=== PATIENT | female | born 1990 | race Caucasian/White ===

== ENCOUNTER 2016-11-21 17:12 | Emergency (ER) | payer OTHER ==
[~2016-11-21] VITALS: Ht 177.8 cm; Wt 167.8 kg
[~2016-11-21 17:12] MED LIST: ALBUTEROL SULF8.5 GM INH; BACTRIM DS TAB1 EACH PO; CEPHALEXIN500 MG PO; DOXYCYCLINE HY100 MG PO; LISINOPRIL5 MG PO; METFORMIN HCL500 MG PO; MULTIVITAMINS1 EAC7; NORCO 5-325 TA1 EACH PO; PERCOCET 5-3251 EACH PO; PRILOSEC20 MG PO; PROMETHAZINE HC25 M1 PO; VITAMIN D5000 UNIT
[2016-11-21] MEDS ORDERED: LATUDA20 MG PO (17:24)
== END 2016-11-21 17:30 | disposition home or self-care (01) ==
LOC: ED 17:12
DX: Z00.8 Encounter for other general examination (principal)

== ENCOUNTER 2017-11-01 08:27 | Emergency (ER) | payer OTHER ==
[~2017-11-01] VITALS: Ht 177.8 cm; Wt 159.7 kg
[~2017-11-01 08:27] MED LIST changes: +LATUDA20 MG PO
[2017-11-01] MEDS ORDERED: NORCO 7.5-3251 EACH PO (12:58)
== END 2017-11-01 13:17 | disposition home or self-care (01) ==
LOC: ED 08:27
DX: N83.201 Unspecified ovarian cyst, right side (principal); E11.9 Type 2 diabetes mellitus without complications; I10 Essential (primary) hypertension; F17.200 Nicotine dependence, unspecified, uncomplicated; Z88.6 Allergy status to analgesic agent; Z88.0 Allergy status to penicillin
CPT/HCPCS: 74177; 76830; 76856; 81001; 84703; 85025; 96361; 96374; 99284; J1885; J7030; Q9967

== ENCOUNTER 2018-08-26 23:57 | Emergency (ER) | payer OTHER ==
[~2018-08-26] VITALS: Ht 177.8 cm; Wt 155.1 kg
[~2018-08-26 23:57] MED LIST changes: +CLONIDINE HCL0.1 MG PO; +CYCLOBENZAPRINE10 MG PO; +DICLOFENAC SODI75 MG PO; +FORTAMET500 MG PO; +LEXAPRO10 MG PO; +NORCO 7.5-3251 EACH PO
== END 2018-08-27 01:01 | disposition home or self-care (01) ==
LOC: ED 23:57
DX: S80.11XA Contusion of right lower leg, initial encounter (principal); W01.198A Fall on same level from slipping, tripping and stumbling with subsequent striking against other object, initial encounter; J45.909 Unspecified asthma, uncomplicated; E11.9 Type 2 diabetes mellitus without complications; G43.909 Migraine, unspecified, not intractable, without status migrainosus; I10 Essential (primary) hypertension; F17.200 Nicotine dependence, unspecified, uncomplicated; Z88.6 Allergy status to analgesic agent; Z88.0 Allergy status to penicillin; Z79.899 Other long term (current) drug therapy; Z79.84 Long term (current) use of oral hypoglycemic drugs
CPT/HCPCS: 73590; 73610; 99283-25

== ENCOUNTER 2019-02-09 21:58 | Emergency (ER) | payer OTHER ==
[~2019-02-09] VITALS: Ht 177.8 cm; Wt 155.1 kg
--- OUTSIDE RECORDS SUMMARY | 2019-02-09 22:00 | XMS ---
PreManage Notification: LINA LI Security Repossessor Events No recent Security Events currently on file CRITERIA MET - [facility] Care Guidelines - [facility] There are no care providers on record at this time. Guidelines Source: [employer] [facility] [place] Guidelines Date: 08/28/2018 Care Coordination: Mental health services are being provided by [employer].\T\nbsp; Please contact [employer] with mental health concerns.\T\nbsp; [facility]:\T\nbsp; [phone]\T\nbsp; Vinny: [phone]. E.D. VISIT COUNT (12 MO.) 3 [facility] TOTAL 3 NOTE: Visits indicate total known visits. ED/UCC VISIT TRACKING (12 MO.) 02/09/2019 21:59 [facility] [place] TYPE: Emergency COMPLAINT: - FLANK PAIN, VOMITING, SOB 08/26/2018 23:58 [facility] [place] TYPE: Emergency COMPLAINT: - R ANKLE INJURY DIAGNOSES: - 1 Type 2 diabetes mellitus without complications - Fall same lev from slip/trip w strike agnst oth object, init - Unspecified asthma, uncomplicated - Migraine, unsp, not intractable, without status migrainosus - Other senior care (current) drug therapy - Contusion of right lower leg, initial encounter - Nicotine dependence, unspecified, uncomplicated - Essential (primary) hypertension - custodial (current) use of oral hypoglycemic drugs - Allergy status to analgesic agent status - Allergy status to penicillin - Pain in right ankle and joints of right foot 02/14/2018 18:09 [facility] [place] TYPE: Emergency COMPLAINT: - BACK PAIN DIAGNOSES: - Strain of muscle, fascia and tendon of lower back, init - Other superintendent marine oil terminal (current) drug therapy - 1 Type 2 diabetes mellitus without complications - custodial (current) use of oral hypoglycemic drugs - Other and unspecified ovrexrtn or strnous move/pstr, init - Allergy status to analgesic agent status - Essential (primary) hypertension - Dorsalgia, unspecified - Low back pain - Allergy status to penicillin - Nicotine dependence, unspecified, uncomplicated INPATIENT VISIT TRACKING (12 MO.) No inpatient visits to display in this time frame [id number]
[2019-02-09] MEDS ORDERED: CLEOCIN HCL300 MG PO (22:18)
[2019-02-09] MEDS ORDERED: NORCO 7.5-3251 EACH PO (22:18)
[2019-02-10] MEDS ORDERED: NORCO 5-325 TA1 EACH PO (00:27)
[2019-02-10] MEDS ORDERED: ZOFRAN4 MG PO (00:27)
== END 2019-02-10 00:41 | disposition home or self-care (01) ==
LOC: ED 21:58
DX: R10.9 Unspecified abdominal pain (principal); I10 Essential (primary) hypertension; E11.9 Type 2 diabetes mellitus without complications; F17.200 Nicotine dependence, unspecified, uncomplicated; Z88.6 Allergy status to analgesic agent; Z88.0 Allergy status to penicillin
CPT/HCPCS: 74177; 80053; 81001; 83690; 84703; 85025; 96361; 96374; 96375; 96376; 99284-25; J1170; J2405; J7030

== ENCOUNTER 2020-01-27 12:40 | Emergency (ER) | payer OTHER ==
[~2020-01-27] VITALS: Ht 177.8 cm; Wt 155.1 kg
[~2020-01-27 12:40] MED LIST changes: +CLEOCIN HCL300 MG PO; +ZOFRAN4 MG PO
--- OUTSIDE RECORDS SUMMARY | 2020-01-27 12:44 | XMS ---
PreManage Notification: LINA LI Security Adobe Developer Events No recent Security Events currently on file CRITERIA MET - [facility] - Has Care Guidelines - PDMP CARE PROVIDERS ARIANNE HAMMONDS Nurse Practitioner: Women's Health 02/10/2019-Current PHONE: [phone] Guidelines Source: [employer] [facility] Guidelines Date: 08/28/2018 Care Coordination: Mental health services are being provided by [employer].\T\nbsp; Please contact [employer] with mental health concerns.\T\nbsp; Adilia/Keanu l[place]:\T\nbsp; [phone]\T\nbsp; [place]: [phone]. Care History Medical/Surgical 02/10/2019 [facility] - Patient is currently established with [facility]. If patient is seen in the ED during business hours. Please contact [facility] at [facility]. Care Recommendation: This patient has had 5 or more Emergency Department visits in the last 12 months.\T\nbsp; Patient requires education on the scope and purpose of the ED as an acute care provider not a Primary Care Provider and should not be utilized for chronic conditions.\T\nbsp; These are guidelines and the provider should exercise clinical judgment when providing care. E.D. VISIT COUNT (12 MO.) 2 [facility] TOTAL 2 NOTE: Visits indicate total known visits. ED/UCC VISIT TRACKING (12 MO.) 01/27/2020 12:41 [facility] [place] TYPE: Emergency COMPLAINT: - INSECT BITE 02/09/2019 21:59 [facility] [place] TYPE: Emergency COMPLAINT: - FLANK PAIN, VOMITING, SOB DIAGNOSES: - Allergy status to penicillin - Essential (primary) hypertension - Allergy status to analgesic agent status - Unspecified abdominal pain - Type 2 diabetes mellitus without complications - Nicotine dependence, unspecified, uncomplicated INPATIENT VISIT TRACKING (12 MO.) No inpatient visits to display in this time frame [id number]
[2020-01-27] MEDS ORDERED: NORCO 7.5-3251 EACH PO (20:06)
[2020-01-27] MEDS ORDERED: ONDANSETRON ODT8 MG PO (20:06)
[2020-01-27] MEDS ORDERED: GLUCOPHAGE500 MG PO (20:06)
[2020-01-27] MEDS ORDERED: BACTRIM DS TAB1 EACH PO (20:06)
== END 2020-01-27 20:38 | disposition home or self-care (01) ==
LOC: ED 12:40
DX: L03.311 Cellulitis of abdominal wall (principal); B95.62 Methicillin resistant Staphylococcus aureus infection as the cause of diseases classified elsewhere; J45.909 Unspecified asthma, uncomplicated; E11.9 Type 2 diabetes mellitus without complications; G43.909 Migraine, unspecified, not intractable, without status migrainosus; I10 Essential (primary) hypertension; F17.200 Nicotine dependence, unspecified, uncomplicated; Z88.0 Allergy status to penicillin; Z88.8 Allergy status to other drugs, medicaments and biological substances; Z79.899 Other long term (current) drug therapy; Z79.84 Long term (current) use of oral hypoglycemic drugs
CPT/HCPCS: 76705; 80053; 83605; 85025; 99284-25; J1170; J2405; J3370; J7030; J7060

== ENCOUNTER 2020-08-07 17:26 | Emergency (ER) | payer OTHER ==
[~2020-08-07] VITALS: Ht 177.8 cm; Wt 156.2 kg
[~2020-08-07 17:26] MED LIST changes: +GLUCOPHAGE500 MG PO; +ONDANSETRON ODT8 MG PO
[2020-08-07] MEDS ORDERED: CYCLOBENZAPRINE10 MG PO (19:47)
[2020-08-07] MEDS ORDERED: HYDROCODON-ACE1 EA10 PO (19:47)
== END 2020-08-07 20:00 | disposition home or self-care (01) ==
LOC: ED 17:26
DX: S39.012A Strain of muscle, fascia and tendon of lower back, initial encounter (principal); X50.0XXA Overexertion from strenuous movement or load, initial encounter; J45.909 Unspecified asthma, uncomplicated; E11.9 Type 2 diabetes mellitus without complications; G43.909 Migraine, unspecified, not intractable, without status migrainosus; I10 Essential (primary) hypertension; F17.200 Nicotine dependence, unspecified, uncomplicated; Z88.0 Allergy status to penicillin; Z88.6 Allergy status to analgesic agent
CPT/HCPCS: 99283

== ENCOUNTER 2021-09-06 09:54 | Emergency (ER) | payer OTHER ==
[~2021-09-06] VITALS: Ht 177.8 cm; Wt 156.0 kg
[~2021-09-06 09:54] MED LIST changes: +HYDROCODON-ACE1 EA10 PO
[2021-09-06] MEDS ORDERED: FAMCICLOVIR500 MG PO (10:55)
[2021-09-06] MEDS ORDERED: HYDROXYZINE HCL25 MG PO (10:55)
[2021-09-06] MEDS ORDERED: PREDNISONE20 MG PO (10:55)
[2021-09-06] MEDS ORDERED: FLUOXETINE HCL20 MG PO (11:12)
[2021-09-06] MEDS ORDERED: METFORMIN HCL500 MG PO (11:27)
== END 2021-09-06 11:25 | disposition home or self-care (01) ==
LOC: ED 09:54
DX: G51.0 Bell's palsy (principal); E11.65 Type 2 diabetes mellitus with hyperglycemia; J45.909 Unspecified asthma, uncomplicated; E11.9 Type 2 diabetes mellitus without complications; G43.909 Migraine, unspecified, not intractable, without status migrainosus; I10 Essential (primary) hypertension; F17.200 Nicotine dependence, unspecified, uncomplicated; Z88.8 Allergy status to other drugs, medicaments and biological substances; Z88.0 Allergy status to penicillin
CPT/HCPCS: 99284; J7512

== ENCOUNTER 2022-04-12 11:51 | Emergency (ER) | payer OTHER ==
[~2022-04-12] VITALS: Ht 177.8 cm; Wt 143.3 kg
[~2022-04-12 11:51] MED LIST changes: +FAMCICLOVIR500 MG PO; +FLUOXETINE HCL20 MG PO; +HYDROXYZINE HCL25 MG PO; +PREDNISONE20 MG PO
[2022-04-12] MEDS ORDERED: DOXYCYCLINE MO100 MG PO (16:00)
[2022-04-12] MEDS ORDERED: BACTRIM DS TAB1 EACH PO (19:48)
== END 2022-04-12 20:00 | disposition home or self-care (01) ==
LOC: ED 11:51
DX: L02.211 Cutaneous abscess of abdominal wall (principal); J45.909 Unspecified asthma, uncomplicated; E11.9 Type 2 diabetes mellitus without complications; G43.909 Migraine, unspecified, not intractable, without status migrainosus; I10 Essential (primary) hypertension; F17.200 Nicotine dependence, unspecified, uncomplicated; Z88.6 Allergy status to analgesic agent; Z88.0 Allergy status to penicillin; Z79.899 Other long term (current) drug therapy; Z79.84 Long term (current) use of oral hypoglycemic drugs
CPT/HCPCS: 36415; 80053; 83605; 85025; 99283

== ENCOUNTER 2023-09-22 23:35 | Emergency (ER) | payer OTHER ==
[~2023-09-22] VITALS: Ht 180.3 cm; Wt 143.2 kg
--- OUTSIDE RECORDS SUMMARY | ~2023-09-22 | XMS | Continuity of Care Document ---
Demographics + + + | Address | [address] | | | [place] [address] | + + + | Preferred Language | Unknown | + + + | Marital Status | unknown | + + + | Nondenominational Affiliation | Unknown | + + + | Race | White | + + + | Ethnic Group | Unknown | + + + Author + + + | Author | [facility] | + + + | Organization | [facility] | + + + | Address | [address] | | | [place] [address] | + + + | Phone | | + + + Care Team Providers + + + + | Care Identification Printing Machine Setter Name | Role | Phone | + + + + Unavailable | Unavailable | + + + + Unavailable | Unavailable | + + + + Allergies and Intolerances + + + + + + | date | description | facility | reaction | severity | + + + + + + | 2023-08-15 | [facility] | Active | | 00:00 | | [facility] | | | | | | [facility] | | | | | | Loss | | | + + + + + + | 2023-08-15 | [facility] | Active | | 00:00 | | [facility] | | | | | | [facility] Weight | | | | | | Loss | | | + + + + + + | 2023-08-15 | [facility] | [facility] | Active | | 00:00 | | [facility] and | | | | | | Medical Weight | | | | | | Loss | | | + + + + + + | 2023-08-15 | [facility]axis | Active | | 00:00 | | [facility] | | | | | | Medical Weight | | | | | | Loss | | | + + + + + + | 2023-08-15 | [facility] | [facility]axis | Active | | 00:00 | | [facility] and | | | | | | Medical Weight | | | | | | Loss | | | + + + + + + | 2023-08-15 | [facility] | Active | | 00:00 | | [facility] and | | | | | | Medical Weight | | | | | | Loss | | | + + + + + + | 2023-08-15 | [facility] | Active | | 00:00 | | [facility] and | | | | | | Medical Weight | | | | | | Loss | | | + + + + + + | 2023-08-15 | [facility] | Active | | 00:00 | | [facility]rics and | | | | | | Medical Weight | | | | | | Loss | | | + + + + + + | 2023-08-15 | [facility] | [facility]axis | Active | | 00:00 | | Bariatrics and | | | | | | Medical Weight | | | | | | Loss | | | + + + + + + | 2023-08-15 | [facility] | [facility]axis | Active | | 00:00 | | Bariatrics and | | | | | | Medical Weight | | | | | | Loss | | | + + + + + + | 2023-08-15 | [facility] | [facility]axis | Active | | 00:00 | | [facility]rics and | | | | | | Medical Weight | | | | | | Loss | | | + + + + + + | 2023-08-15 | [facility] | [facility]axis | Active | | 00:00 | | Bariatrics and | | | | | | Medical Weight | | | | | | Loss | | | + + + + + + | 2023-08-15 | [facility] | [facility]axis | Active | | 00:00 | | Bariatrics and | | | | | | Medical Weight | | | | | | Loss | | | + + + + + + | 2023-08-15 | [facility] | [facility]aphylaxis | Active | | 00:00 | | Bariatrics and | | | | | | Medical Weight | | | | | | Loss | | | + + + + + + | 2023-08-15 | [facility] | [facility]aphylaxis | Active | | 00:00 | | Bariatrics and | | | | | | Medical Weight | | | | | | Loss | | | + + + + + + | 2023-08-15 | [facility] | [facility]axis | Active | | 00:00 | | Bariatrics and | | | | | | Medical Weight | | | | | | Loss | | | + + + + + + | 2023-08-15 | [facility] | [facility]axis | Active | | 00:00 | | Bariatrics and | | | | | | Medical Weight | | | | | | Loss | | | + + + + + + | 2023-08-15 | [facility] | Anaphylaxis | Active | | 00:00 | | Bariatrics and | | | | | | Medical Weight | | | | | | Loss | | | + + + + + + | 2023-08-15 | [facility] | Anaphylaxis | Active | | 00:00 | | Bariatrics and | | | | | | Medical Weight | | | | | | Loss | | | + + + + + + | 2023-08-15 | [facility] | Anaphylaxis | Active | | 00:00 | | Bariatrics and | | | | | | Medical Weight | | | | | | Loss | | | + + + + + + | 2023-08-15 | [facility] | Anaphylaxis | Active | | 00:00 | | Bariatrics and | | | | | | Medical Weight | | | | | | Loss | | | + + + + + + | 2023-08-15 | [facility] | [facility] | Rash | Active | | 00:00 | | [facility] and | | | | | | Medical Weight | | | | | | Loss | | | + + + + + + Encounters No information. Functional Status No information. Immunizations No information. Medications + + + + | date | description | facility | + + + + | 2023-08-03 00:00 | lamotrigine 300 mg 24 hr | [facility] | | | extended release oral | [facility] | | | tablet | | + + + + | 2023-07-11 00:00 | ergocalciferol 1.25 mg | [facility] | | | oral capsule | [facility] | + + + + | 2023-07-03 00:00 | doxycycline monohydrate | [facility] | | | 100 mg oral tablet | [facility] | + + + + | 2023-08-03 00:00 | diazepam 5 mg oral tablet | [facility] | | | | [facility] | + + + + | 2023-07-05 00:00 | fluconazole 150 mg oral | [facility] | | | tablet | [facility] | + + + + | 2023-08-10 00:00 | prazosin 5 mg oral capsule | [facility] | | | | [facility] | + + + + | 2023-07-11 00:00 | smx 800 mg / tmp 160 mg | [facility] | | | oral tablet | [facility] | + + + + | 2023-08-03 00:00 | lamotrigine 100 mg oral | [facility] | | | tablet | [facility] | + + + + | 2023-07-14 00:00 | 0.5 ml trulicity 6 mg/ml | [facility] | | | auto-injector | [facility] | + + + + | 2023-08-08 00:00 | baclofen 5 mg oral tablet | [facility] | | | | [facility] | + + + + | 2023-08-03 00:00 | trazodone hydrochloride | [facility] | | | 100 mg oral tablet | [facility] | + + + + | 2023-08-08 00:00 | apap 325 mg / hydrocodone | [facility] | | | bitartrate 7.5 mg oral | [facility] | | | tablet | | + + + + | 2023-07-06 00:00 | buspirone hydrochloride 30 | [facility] | | | mg oral tablet | [facility] | + + + + Problems + + + + | date | description | facility | + + + + | 2023-06-25 13:50:24 | Morbid (severe) obesity | [facility] | | | due to excess calories | Care | + + + + | 2023-08-15 13:43:33 | Morbid (severe) obesity | [facility] Total | | | due to excess calories | Care | + + + + | 2023-08-15 13:47:28 | Morbid (severe) obesity | [facility] | | | due to excess calories | Care | + + + + | 2023-08-15 14:00 | Morbid (severe) obesity | [facility] | | | due to excess calories | Care | + + + + | 2023-08-15 14:42:49 | Type 2 diabetes mellitus | [facility] | | | without complications | Care | + + + + | 2023-08-15 14:42:49 | Morbid (severe) obesity | [facility] | | | due to excess calories | Care | + + + + | 2023-08-15 14:42:49 | Other specified anxiety | [facility] | | | disorders | Care | + + + + | 2023-08-15 14:42:49 | Post-traumatic stress | [facility] | | | disorder, unspecified | Care | + + + + | 2023-08-15 14:42:49 | Obstructive sleep apnea | [facility] | | | (adult) (pediatric) | Care | + + + + | 2023-08-15 14:42:49 | Gastro-esophageal reflux | [facility] | | | disease without esophagitis | Care | | | | | + + + + | 2023-08-15 14:42:49 | Body mass index (BMI) | [facility] | | | 45.0-49.9, adult | Care | + + + + | 2023-08-15 14:42:49 | Personal history of | [facility] | | | nicotine dependence | Care | + + + + Procedures No information. Results/Labs No information. Social History + + + + | date | description | facility | + + + + | 2023-08-15 00:00 | Current smoker | [facility] | | | | [facility] | + + + + | 2023-08-15 00:00 | Ex-smoker | [facility] | | | | [facility] | + + + + Vital Signs + + + +---------+ | date | measurement | value | units | + + + +---------+ | 2023-08-15 00:00 | BMI | 46.92 | kg/m2 | + + + +---------+ | 2023-08-15 00:00 | BP_diastolic | 88 | mmHg | + + + +---------+ | 2023-08-15 00:00 | BP_systolic | 130 | mmHg | + + + +---------+ | 2023-08-15 00:00 | heart_rate | 92 | /min | + + + +---------+ | 2023-08-15 00:00 | height_metric | 177.8 | cm | + + + +---------+ | 2023-08-15 00:00 | height_standard | 70 | in | + + + +---------+ | 2023-08-15 00:00 | weight_metric | 148.33 | kg | + + + +---------+ | 2023-08-15 00:00 | weight_standard | 327 | lb | + + + +---------+"
[~2023-09-22 23:35] MED LIST changes: +BACLOFEN5 MG PO; +BUSPIRONE HCL30 MG PO; +CRANBERRY200 MG PO; +DIAZEPAM5 MG PO; +DOXYCYCLINE MO100 MG PO; +GABAPENTIN300 MG PO; +HYDROCODON-ACE1 EA11 PO; +LAMICTAL XR300 MG PO; +LAMOTRIGINE OD100 MG PO; +METHYLPREDNISOLO4 M1 PO; +MINIPRESS5 MG PO; +MULTI VITAMIN1 EACH PO; +ONDANSETRON ODT4 MG PO; +TRAZODONE HCL100 MG PO; +TRULICITY3 MG/0.5 M; +VENTOLIN HFA18 GM; +VITAMIN D21250 MCG PO
--- OUTSIDE RECORDS SUMMARY | 2023-09-22 23:38 | XMS ---
PreManage Notification: LINA LI Security Stable Helper Events No recent Security Events currently on file CRITERIA MET - [facility] - [facility] - 2 Visits in 30 Days CARE PROVIDERS ARIANNE HAMMONDS Nurse Practitioner: Women's Health 02/10/2019-Current PHONE: [phone] -[facility]+ Dentist: Movie Machine Operator [facility] PHONE: [phone] -Keanu- Dentist: Movie Machine Operator [facility] PHONE: [phone] KACY GUTIERREZ Physician Continuous Process [employer] Current PHONE: Unknown [facility] Current \F\ [facility] PHONE: [phone] Care Guidelines exist for the following facilities: [employer] [facility] ( 08/28/2018 ) [facility] MO[facility] NOTE: Visits indicate total known visits. ED/UCC VISIT TRACKING (12 MO.) 09/22/2023 23:36 [facility] [place] TYPE: Emergency COMPLAINT: - HIGH BLOOD SUGAR 09/18/2023 14:26 [facility] [place] TYPE: Emergency COMPLAINT: - RT HIP PAIN DIAGNOSES: - Allergy status to analgesic agent - Allergy status to penicillin - Allergy to other foods - Essential (primary) hypertension - MCC (current) use of inhaled steroids - MCC (current) use of non-steroidal anti-inflammatories (NSAID) - MCC (current) use of oral hypoglycemic drugs - Long-term (current) use of injectable non-insulin antidiabetic drugs - Low back pain, unspecified - Lumbago with sciatica, left side - Nicotine dependence, unspecified, uncomplicated - Other manager terminal (current) drug therapy - Type 2 diabetes mellitus without complications - Unspecified asthma, uncomplicated INPATIENT VISIT TRACKING (12 MO.) No inpatient visits to display in this time frame [id number]
[2023-09-22] MEDS ORDERED: LACTATED RINGER'S 1,000 ML IV ONE (23:45)
[2023-09-22] MEDS ORDERED: IBLOOD GLUCOSE TEST STRIP 1 EA TEST XX ONE (23:45)
[2023-09-23 00:11] LABS: BILIRUBIN, URINE NEGATIVE (negative); BLOOD/HGB, URINE TRACE-I (Negative); KETONE, URINE NEGATIVE (Negative); LEUK ESTERASE, URINE NEGATIVE (negative); NITRITE, URINE NEGATIVE (negative); PH, URINE 5.5 (5-7)
[2023-09-23 00:17] LABS: BASOPHILS 0.4 % (0-2); EOSINOPHILS 0.5 % (0-6); HEMATOCRIT 44.7 % (35.0-50.0); HEMOGLOBIN 14.5 g/dL (12.0-18.0); LYMPHOCYTES 16.5 % (24-44); MCH 26.6 (27-36); MCHC 32.4 g/dl (30-36); MCV 82.1 fl (81-99); MONOCYTES 4.8 % (0-12); NEUTROPHILS 77.8 % (39-80); PLATELET COUNT 301 K/uL (140-440); RBC 5.45 M/ul (4.3-5.7); RDW 14.4 (10.5-15.0)
[2023-09-23 00:28] LABS: BACTERIA, URINE RARE /hpf (negative); CASTS, URINE NONE SEEN \\lpf; COLLECTION TYPE, URINE CLEAN CATCH; CRYSTALS, URINE NONE SEEN (0-1+); EPITHELIAL CELLS, URINE SQUAMOUS 1+ /lpf (0-1+); REFLEX CULTURE, URINE No (No)
[2023-09-23 00:34] LABS: ALBUMIN 3.5 g/dL (3.4-5.0); ALBUMIN/GLOBULIN RATIO 0.92 (1.1-2.4); ANION GAP 17.1 (7-21); BILIRUBIN, TOTAL 0.3 ng/dL (0.2-1.0); BUN/CREATININE RATIO 16.83 (6.0-28.6); CALCIUM 8.3 mg/dL (8.5-10.1); CREATININE, SERUM 1.01 mg/dL (0.55-1.02); POTASSIUM 4.1 mmol/L (3.5-5.1); PROTEIN, TOTAL 7.3 g/dL (6.4-8.2)
[2023-09-23] MEDS ORDERED: INSULIN LISPRO 100 UNIT/ML ML IV ONE (00:45)
[2023-09-23 01:28] VITALS: BP 143/83
== END 2023-09-23 01:26 | disposition home or self-care (01) ==
LOC: ED 23:35
PROVIDERS: Family Medicine
DX: R73.9 Hyperglycemia, unspecified (principal); T38.0X5A Adverse effect of glucocorticoids and synthetic analogues, initial encounter; E11.9 Type 2 diabetes mellitus without complications; J45.909 Unspecified asthma, uncomplicated; I10 Essential (primary) hypertension; F17.200 Nicotine dependence, unspecified, uncomplicated; Z88.6 Allergy status to analgesic agent; Z91.048 Other nonmedicinal substance allergy status; Z88.0 Allergy status to penicillin; Z79.52 Long term (current) use of systemic steroids; Z79.1 Long term (current) use of non-steroidal anti-inflammatories (NSAID); Z79.84 Long term (current) use of oral hypoglycemic drugs; Z79.85 Long-term (current) use of injectable non-insulin antidiabetic drugs; Z79.51 Long term (current) use of inhaled steroids
CPT/HCPCS: 36415; 80053; 81001; 82010; 82803; 84703; 85025; 96361; 96374; 99284-25; J1815; J7121